=== PATIENT | female | born 1965 | race Caucasian/White ===

== ENCOUNTER → 2021-08-03 | Outpatient (CLI) | payer OTHER ==
[~2021-08-03] MED LIST: BUPROPION HCL100 M1 PO; CRESTOR20 MG PO; ECOTRIN81 MG PO; GLUCOPHAGE XR500 M1 PO; MELATONIN10 M2 PO; VENLAFAXINE HC150 MG PO
== END ==
LOC: HEART 5 07-13 15:00
DX: I10 Essential (primary) hypertension (principal); T78.2XXA Anaphylactic shock, unspecified, initial encounter; Z86.79 Personal history of other diseases of the circulatory system
CPT/HCPCS: 93306